=== PATIENT | female | born 1990 | race Caucasian/White ===

== ENCOUNTER 2016-07-28 20:42 | Emergency (ER) | payer BC ==
[2016-07-28 20:59] VITALS: RESP 18; TEMP 98.8
[2016-07-28] MEDS ORDERED: MAG HYDROX/AL HYDROX/SIMETH 30 ML, HYOSCYAMINE ELIXIR 10 ML, CIMETIDINE HCL 300 MG PO STA ×3 (22:04)
--- NOTE | 2016-07-28 22:12 | ED ---
General Adult HPI - General Chief complaint: Chest Pain Stated complaint: chest pressure/pain Time Seen by Provider: 07/28/16 21:04 Source: patient, RN notes reviewed, old records reviewed Mode of arrival: ambulatory Limitations: no limitations - History of Present Illness Initial comments: Chief complaint history of present illness a 25-year-old female here with complaint of a burning sensation that starts on her left anterior chest wall and goes toward the left upper arm. This started 36 hours ago on again off again. Does not get better or worse with twisting turning. No evidence of any injury. No associated nausea vomiting or sweats. - Related Data Home Medications Medication Instructions Recorded Confirmed Eletriptan [Relpax] 40 mg PO DAILY PRN 07/07/14 07/28/16 Propranolol HCl [Inderal Xl] 80 mg PO HS 07/28/16 07/28/16 Zonisamide 200 mg PO HS 07/28/16 07/28/16 Allergies Allergy/AdvReac Type Severity Reaction Status Date / Time No Known Allergies Allergy Verified 07/28/16 21:36 Review of Systems ROS Statement: Those systems with pertinent positive or pertinent negative responses have been documented in the HPI. Review of systems. No headache or visual acuity changes no stiff neck or neck ache. The patient reports she has history of almost daily migraine type headaches. She's only had 3 in the past 4 weeks. She takes propranolol 80 mg at night and is in a semi-20 mg at night. She takes Relpax is needed when she has a bad headache. Otherwise the other medications are nightly. She been on these medications for at least 8 months. Patient otherwise denying any shortness of breath. The burning sensation to her mid sternum to the left upper shoulder cannot be altered by twisting turning deep breathing coughing palpation at setter. Otherwise patient's denying any changes in bowel habits no frequency urgency or dysuria. No neuro deficits. All systems otherwise reviewed are negative. Past medical problems significant for migraines for the past 7 years. Being treated by her neurologist. History of viral meningitis when she is in second grade. Surgeries right ACL repair, ear tubes. Family history no cancers, aneurysms or migraines. Patient denies ALLERGIES, denies smoking, denies alcohol use. 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 ROS Other: All systems not noted in ROS Statement are negative. Past Medical History Additional Past Medical History / Comment(s): migraines, viral mennigitis age 10 History of Any Multi-Drug Resistant Organisms: None Reported Additional Past Surgical History / Comment(s): ACL Past Psychological History: No Psychological Hx Reported Smoking Status: Never smoker Past Alcohol Use History: None Reported Past Drug Use History: None Reported General Exam - General Exam Comments Initial Comments: General: The patient is awake and alert, complaining of a burning sensation from the mid sternum to the left upper shoulder area. Ongoing for 36 hours. Constant, mild , not affected. No associated sweats nausea vomiting. Denies injuries. Eye: Pupils are equal, round and reactive to light, extra-ocular movements are intact ; there is normal conjunctiva bilaterally. No signs of icterus. Ears, nose, mouth and throat: There are moist mucous membranes and no oral lesions. Neck: The neck is supple, there is no tenderness , states she has chronic neck pain has received Botox injections because of both migraines and stiff neck. States she works out every day and sometimes is neck discomfort afterwards. Cardiovascular: There is a regular rate and rhythm. No murmur, rub or gallop is appreciated. No rash noted in the area of discomfort, early shingles discussed. Respiratory: Lungs are clear to auscultation, respirations are non-labored, breath sounds are equal. No wheezes, stridor, rales, or rhonchi. Gastrointestinal: Soft, non-distended, non-tender abdomen without masses or organomegaly noted. There is no rebound or guarding present. No CVA tenderness. Bowel sounds are unremarkable. Back: There is no tenderness to palpation in the midline. There is no obvious deformity. No rashes noted. Musculoskeletal: Normal ROM, no tenderness, There is no pedal edema. There is no calf tenderness or swelling. Sensation intact. Neurological: No neuro deficits noted or complained of. Skin: Skin is warm and dry and no rashes or lesions are noted. No rash, early shingles discussed. Limitations: no limitations Course Vital Signs 07/28/16 20:57 Temperature 98.8 F Pulse Rate 88 Respiratory 18 Rate Blood Pressure 134/88 O2 Sat by Pulse 99 Oximetry EKG Findings - EKG Comments: EKG Findings:: EKG was done and reviewed at 2115 hrs. showing normal sinus rhythm no acute service no ectopy no ischemic changes. Rate 77 MT interval is 124 QRS 92 QT 384 QTc 434. At this time no old EKG to compare to. Dr. Coronel Medical Decision Making - Medical Decision Making Medical decision making; patient's white count 6.4 hemoglobin 12.7 hematocrit 37.8, potassium is 3.9 with a BUN of 12 creatinine 0.7 and GFR greater than 60. Glucose 100. Amylase and lipase within normal limits. CK and MB normal troponin normal at less than 0.012 Chest x-ray was done and reviewed by radiologist his findings are the heart and mediastinum are normal. Lungs are clear. Diaphragm is normal. There are no hilar masses. There are chest leads. Bony thorax is intact. Impression; normal chest. As read by Dr. Ureña The patient's been advised follow-up with family physician. We did discuss a potential side effect of zomisanide, paresthesia. Watch for any change in the texture of the skin as might happen with shingles. Patient advised to follow- up with family doctor or return emergency room as needed - Lab Data Result diagrams: 07/28/16 22:20 07/28/16 22:20 Lab Results 07/28/16 07/28/16 07/28/16 Range/Units 22:20 22:20 22:20 WBC 6.4 (3.8-10.6) k/uL RBC 4.35 (3.80-5.40) m/uL Hgb 12.7 (11.4-16.0) gm/dL Hct 37.8 (34.0-46.0) % MCV 86.9 (80.0-100.0) fL MCH 29.1 (25.0-35.0) pg MCHC 33.5 (31.0-37.0) g/dL RDW 12.7 (11.5-15.5) % Plt Count 252 (150-450) k/uL Neutrophils % 50 % Lymphocytes % 42 % Monocytes % 6 % Eosinophils % 1 % Basophils % 1 % Neutrophils # 3.2 (1.3-7.7) k/uL Lymphocytes # 2.7 (1.0-4.8) k/uL Monocytes # 0.4 (0-1.0) k/uL Eosinophils # 0.1 (0-0.7) k/uL Basophils # 0.0 (0-0.2) k/uL Sodium 139 (137-145) mmol/L Potassium 3.9 (3.5-5.1) mmol/L Chloride 105 (98-107) mmol/L Carbon Dioxide 20 L (22-30) mmol/L Anion Gap 14 mmol/L BUN 12 (7-17) mg/dL Creatinine 0.79 (0.52-1.04) mg/dL Est GFR (MDRD) Af Amer >60 (>60 ml/min/1.73 sqM) Est GFR (MDRD) Non-Af >60 (>60 ml/min/1.73 sqM) Glucose 100 H (74-99) mg/dL Calcium 9.9 (8.4-10.2) mg/dL Total Bilirubin 0.4 (0.2-1.3) mg/dL AST 18 (14-36) U/L ALT 28 (9-52) U/L Alkaline Phosphatase 39 (38-126) U/L Total Creatine Kinase 49 (30-135) U/L CK-MB (CK-2) <0.2 (0.0-2.4) ng/mL CK-MB (CK-2) Rel Index Troponin I <0.012 (0.000-0.034) ng/mL Total Protein 7.2 (6.3-8.2) g/dL Albumin 4.1 (3.5-5.0) g/dL Amylase 70 (30-110) U/L Lipase 170 (23-300) U/L Disposition Clinical Impression: Paresthesia of left upper limb Disposition: HOME SELF-CARE Condition: Stable Instructions: Paresthesia (ED) Additional Instructions: Follow-up with your family physician. Watch for development of any rash. Return emergency room as needed Time of Disposition: 23:48
[2016-07-28 22:44] LABS: Basophils % (A) 1 %; CH 29.7; CHCM 34.4; Eosinophils # (A) 0.1 k/uL (0-0.7); Eosinophils % (A) 1 %; HCT 37.8 % (34.0-46.0); HDW 2.48; HGB 12.7 gm/dL (11.4-16.0); Luc # (Auto) 0.11; Luc % (Auto) 2; Lymphocytes # (A) 2.7 k/uL (1.0-4.8); Lymphocytes % (A) 42 %; MCH 29.1 pg (25.0-35.0); MCHC 33.5 g/dL (31.0-37.0); MCV 86.9 fL (80.0-100.0); Mean Platelet Volume 7.5; Monocytes # (A) 0.4 k/uL (0-1.0); Monocytes % (A) 6 %; Neutrophils # (A) 3.2 k/uL (1.3-7.7); Neutrophils % (A) 50 %; RBC 4.35 m/uL (3.80-5.40); RDW 12.7 % (11.5-15.5); WBC 6.4 k/uL (3.8-10.6); WBC (Perox) 6.54
[2016-07-28 22:57] LABS: ALT 28 U/L (9-52); AST 18 U/L (14-36); Alkaline Phosphatase 39 U/L (38-126); Amylase 70 U/L (30-110); Blood Urea Nitrogen 12 mg/dL (7-17); Calcium 9.9 mg/dL (8.4-10.2); Carbon Dioxide 20 mmol/L (22-30); Chloride 105 mmol/L (98-107); Glucose 100 mg/dL (74-99); Non-African American GFR(MDRD) >60 (>60 ml/min/1.73 sqM); Potassium 3.9 mmol/L (3.5-5.1); Total Bilirubin 0.4 mg/dL (0.2-1.3); Total Protein 7.2 g/dL (6.3-8.2)
[2016-07-28 22:59] LABS: Anion Gap 14 mmol/L; Sodium 139 mmol/L (137-145)
--- NOTE | 2016-07-28 22:59 | XR ---
EXAMINATION TYPE: XR chest 2V DATE OF EXAM: 07/28/2016 10:45 PM COMPARISON: NONE HISTORY: Left-sided chest pain TECHNIQUE: Frontal and lateral views of the chest are obtained. FINDINGS: Heart and mediastinum are normal. Lungs are clear. Diaphragm is normal. There are no hilar masses. There are chest leads. Bony thorax is intact. IMPRESSION: Normal chest
[2016-07-28 23:17] LABS: Creatine Kinase 49 U/L (30-135)
[2016-07-28 23:28] LABS: Creatine Kinase MB <0.2 ng/mL (0.0-2.4); Troponin I <0.012 ng/mL (0.000-0.034)
[2016-07-29] VITALS: BP 104/66; PULSE 84
== END 2016-07-28 23:58 | disposition home or self-care (01) ==
LOC: EC 20:42
DX: R20.8 Other disturbances of skin sensation (principal); Z79.899 Other long term (current) drug therapy; G43.909 Migraine, unspecified, not intractable, without status migrainosus
CPT/HCPCS: 36415; 71020; 80053; 82150; 82550; 82553; 83690; 84484; 85025; 93005; 99285

== ENCOUNTER 2016-09-23 11:47 | Emergency (ER) | payer BC ==
[2016-09-23] MEDS ORDERED: SODIUM CHLORIDE 0.9% 1,000 ML IV STA (12:05)
--- NOTE | 2016-09-23 12:47 | ED ---
Abdominal Pain HPI - General Chief Complaint: Abdominal Pain Stated Complaint: LOWER ABDOMINAL PAIN Time Seen by Provider: 09/23/16 12:05 Source: patient, RN notes reviewed Mode of arrival: ambulatory Limitations: no limitations - History of Present Illness Initial Comments: 25-year-old female presents emergency Department with chief complaint of left lower quadrant abdominal pain. Patient states started over the last 1-2 days. She states is worse this morning. She states that it's a burning sharp type of pain. She's had no prior abdominal surgeries denies any chance she states that control. Denies any vaginal bleeding vaginal discharge. Denies any dysuria, hematuria. Denies any trauma or injury. She states is not worse with movement. She does radiate to her back at this time. Patient's had some nausea no vomiting no diarrhea no constipation. - Related Data Home Medications Medication Instructions Recorded Confirmed Propranolol HCl [Inderal Xl] 80 mg PO HS 07/28/16 09/23/16 Zonisamide 200 mg PO HS 07/28/16 09/23/16 Amitriptyline HCl [Elavil] 25 mg PO HS 09/23/16 09/23/16 Levonorgestrel-Ethin Estradiol 1 tab PO DAILY 09/23/16 09/23/16 [Jolessa 0.15 mg-0.03 mg Tablet] Allergies Allergy/AdvReac Type Severity Reaction Status Date / Time No Known Allergies Allergy Verified 09/23/16 12:38 Review of Systems ROS Statement: Those systems with pertinent positive or pertinent negative responses have been documented in the HPI. ROS Other: All systems not noted in ROS Statement are negative. Past Medical History Additional Past Medical History / Comment(s): migraines, viral mennigitis age 10 , ulcerative colitis History of Any Multi-Drug Resistant Organisms: None Reported Additional Past Surgical History / Comment(s): ACL Past Psychological History: No Psychological Hx Reported Smoking Status: Never smoker Past Alcohol Use History: None Reported Past Drug Use History: None Reported General Exam Limitations: no limitations General appearance: alert, in no apparent distress Head exam: Present: atraumatic, normocephalic, normal inspection Respiratory exam: Present: normal lung sounds bilaterally. Absent: respiratory distress, wheezes, rales, rhonchi, stridor Cardiovascular Exam: Present: regular rate, normal rhythm, normal heart sounds. Absent: systolic murmur, diastolic murmur, rubs, gallop, clicks GI/Abdominal exam: Present: soft, tenderness (Left lower quadrant tenderness [id number]), normal bowel sounds. Absent: distended, guarding, rebound, rigid Back exam: Absent: CVA tenderness (R), CVA tenderness (L) Neurological exam: Present: alert, oriented X3, CN II-XII intact Skin exam: Present: warm, dry, intact, normal color. Absent: rash Course Vital Signs 09/23/16 11:54 Temperature 97.6 F Pulse Rate 73 Respiratory 20 Rate Blood Pressure 115/76 O2 Sat by Pulse 100 Oximetry Medical Decision Making - Medical Decision Making 25-year-old female presented for left groin pain. Patient's ultrasound within normal limits., Lab work within normal limits. This may be a muscle skeletal groin strain or possible lymph node Palpable at This Time. Patient Is Saw OB/ COMMUNICATIONS ASSOCIATE 3 Days Ago and Which States They Told Having Was Normal. Patient Will Be Discharged at This Time Return Parameters Were Discussed. - Lab Data Result diagrams: 09/23/16 12:45 09/23/16 12:45 Lab Results 09/23/16 09/23/16 09/23/16 Range/Units 12:45 12:45 12:45 WBC 6.9 (3.8-10.6) k/uL RBC 4.62 (3.80-5.40) m/uL Hgb 13.8 (11.4-16.0) gm/dL Hct 41.4 (34.0-46.0) % MCV 89.6 (80.0-100.0) fL MCH 29.8 (25.0-35.0) pg MCHC 33.3 (31.0-37.0) g/dL RDW 12.7 (11.5-15.5) % Plt Count 299 (150-450) k/uL Neutrophils % 68 % Lymphocytes % 24 % Monocytes % 4 % Eosinophils % 0 % Basophils % 1 % Neutrophils # 4.7 (1.3-7.7) k/uL Lymphocytes # 1.7 (1.0-4.8) k/uL Monocytes # 0.3 (0-1.0) k/uL Eosinophils # 0.0 (0-0.7) k/uL Basophils # 0.0 (0-0.2) k/uL Sodium 140 (137-145) mmol/L Potassium 4.1 (3.5-5.1) mmol/L Chloride 106 (98-107) mmol/L Carbon Dioxide 23 (22-30) mmol/L Anion Gap 11 mmol/L BUN 12 (7-17) mg/dL Creatinine 0.87 (0.52-1.04) mg/dL Est GFR (MDRD) Af Amer >60 (>60 ml/min/1.73 sqM) Est GFR (MDRD) Non-Af >60 (>60 ml/min/1.73 sqM) Glucose 98 (74-99) mg/dL Calcium 9.3 (8.4-10.2) mg/dL Total Bilirubin 0.6 (0.2-1.3) mg/dL AST 22 (14-36) U/L ALT 21 (9-52) U/L Alkaline Phosphatase 38 (38-126) U/L Total Protein 7.6 (6.3-8.2) g/dL Albumin 4.4 (3.5-5.0) g/dL Amylase 66 (30-110) U/L Lipase 175 (23-300) U/L Urine Color Yellow Urine Appearance Clear (Clear) Urine pH 6.5 (5.0-8.0) Ur Specific [place] 1.011 (1.001-1.035) Urine Protein Negative (Negative) Urine Glucose (UA) Negative (Negative) Urine Ketones Negative (Negative) Urine Blood Negative (Negative) Urine Nitrite Negative (Negative) Urine Bilirubin Negative (Negative) Urine Urobilinogen <2.0 (<2.0) mg/dL Ur Leukocyte Esterase Trace H (Negative) Urine WBC 1 (0-5) /hpf Ur Squamous Epith Cells 1 (0-4) /hpf Urine Bacteria Rare H (None) /hpf Urine HCG, Qual (Not Detectd) 09/23/16 Range/Units 12:45 WBC (3.8-10.6) k/uL RBC (3.80-5.40) m/uL Hgb (11.4-16.0) gm/dL Hct (34.0-46.0) % MCV (80.0-100.0) fL MCH (25.0-35.0) pg MCHC (31.0-37.0) g/dL RDW (11.5-15.5) % Plt Count (150-450) k/uL Neutrophils % % Lymphocytes % % Monocytes % % Eosinophils % % Basophils % % Neutrophils # (1.3-7.7) k/uL Lymphocytes # (1.0-4.8) k/uL Monocytes # (0-1.0) k/uL Eosinophils # (0-0.7) k/uL Basophils # (0-0.2) k/uL Sodium (137-145) mmol/L Potassium (3.5-5.1) mmol/L Chloride (98-107) mmol/L Carbon Dioxide (22-30) mmol/L Anion Gap mmol/L BUN (7-17) mg/dL Creatinine (0.52-1.04) mg/dL Est GFR (MDRD) Af Amer (>60 ml/min/1.73 sqM) Est GFR (MDRD) Non-Af (>60 ml/min/1.73 sqM) Glucose (74-99) mg/dL Calcium (8.4-10.2) mg/dL Total Bilirubin (0.2-1.3) mg/dL AST (14-36) U/L ALT (9-52) U/L Alkaline Phosphatase (38-126) U/L Total Protein (6.3-8.2) g/dL Albumin (3.5-5.0) g/dL Amylase (30-110) U/L Lipase (23-300) U/L Urine Color Urine Appearance (Clear) Urine pH (5.0-8.0) Ur Specific [place] (1.001-1.035) Urine Protein (Negative) Urine Glucose (UA) (Negative) Urine Ketones (Negative) Urine Blood (Negative) Urine Nitrite (Negative) Urine Bilirubin (Negative) Urine Urobilinogen (<2.0) mg/dL Ur Leukocyte Esterase (Negative) Urine WBC (0-5) /hpf Ur Squamous Epith Cells (0-4) /hpf Urine Bacteria (None) /hpf Urine HCG, Qual Not Detected (Not Detectd) Disposition Clinical Impression: Left groin pain Disposition: HOME SELF-CARE Condition: Stable Instructions: Groin Pain (ED) Additional Instructions: Please return to the Emergency Department if symptoms worsen or any other concerns. Time of Disposition: 14:02
[2016-09-23 13:06] LABS: Appearance,Urine Clear (Clear); Bacteria,Urine Rare /hpf; Basophils % (A) 1 %; Bilirubin,Urine Negative (Negative); CH 29.9; CHCM 33.5; Eosinophils % (A) 0 %; Glucose,Urine (UA) Negative (Negative); HCT 41.4 % (34.0-46.0); HDW 2.38; HGB 13.8 gm/dL (11.4-16.0); Ketones,Urine Negative (Negative); Leukocyte Esterase,Urine Trace (Negative); Luc # (Auto) 0.19; Luc % (Auto) 3; Lymphocytes # (A) 1.7 k/uL (1.0-4.8); Lymphocytes % (A) 24 %; MCH 29.8 pg (25.0-35.0); MCHC 33.3 g/dL (31.0-37.0); MCV 89.6 fL (80.0-100.0); Mean Platelet Volume 6.8; Monocytes # (A) 0.3 k/uL (0-1.0); Monocytes % (A) 4 %; Neutrophils # (A) 4.7 k/uL (1.3-7.7); Neutrophils % (A) 68 %; Nitrite,Urine Negative (Negative); PH, Urine 6.5 (5.0-8.0); Particle Count 2052; Protein,Urine Negative (Negative); RBC 4.62 m/uL (3.80-5.40); RDW 12.7 % (11.5-15.5); Specific Gravity,Urine 1.011 (1.001-1.035); Squamous Epithelial Cell,Urine 1 /hpf (0-4); UA Billing (MACRO vs. MICRO) MICRO; Urobilinogen,Urine <2.0 mg/dL (<2.0); WBC 6.9 k/uL (3.8-10.6); WBC (Perox) 6.94; WBC,Urine 1 /hpf (0-5)
[2016-09-23 13:10] LABS: ALT 21 U/L (9-52); AST 22 U/L (14-36); Alkaline Phosphatase 38 U/L (38-126); Amylase 66 U/L (30-110); Anion Gap 11 mmol/L; Blood Urea Nitrogen 12 mg/dL (7-17); Calcium 9.3 mg/dL (8.4-10.2); Carbon Dioxide 23 mmol/L (22-30); Chloride 106 mmol/L (98-107); Glucose 98 mg/dL (74-99); Non-African American GFR(MDRD) >60 (>60 ml/min/1.73 sqM); Potassium 4.1 mmol/L (3.5-5.1); Sodium 140 mmol/L (137-145); Total Bilirubin 0.6 mg/dL (0.2-1.3); Total Protein 7.6 g/dL (6.3-8.2)
--- NOTE | 2016-09-23 13:53 | US ---
EXAMINATION TYPE: US transvaginal DATE OF EXAM: 09/23/2016 1:33 PM COMPARISON: No previous CLINICAL HISTORY: Pain. Left pelvic pain x 1 day, patient on control, 0 TECHNIQUE: Transvaginal (TV) Date of LMP: 2 months ago EXAM MEASUREMENTS: Uterus: 7.5 x 3.0 x 4.0 cm Endometrial Stripe: 0.5 cm Right Ovary: 3.0 x 1.9 x 1.5 cm Left Ovary: 2.7 x 1.9 x 1.5 cm 1. Uterus: anteverted, wnl 2. Endometrium: appears wnl 3. Right Ovary: wnl 4. Left Ovary: wnl Spectral, color and waveform doppler imaging shows good arterial flow within the ovaries; unable to obtain venous flow with the ovaries. 5. Bilateral Adnexa: wnl 6. Posterior cul-de-sac: small amount of free fluid seen IMPRESSION: Arterial waveforms are present within both ovaries. Venous waveforms were not obtained. M inimal free fluid within the pelvis.
--- NOTE | 2016-09-23 13:58 | XR ---
EXAMINATION TYPE: XR KUB DATE OF EXAM: 09/23/2016 1:54 PM CLINICAL HISTORY: Lower stomach and back pain for one week. TECHNIQUE: 2 upright KUB images of the abdomen are obtained. COMPARISON: Abdominal x-ray March 29, 2009. FINDINGS: Scattered gas is seen in non-distended small bowel loops. Gas and fecal material is seen in non-distended colon. There is no visceromegaly, pneumoperitoneum, or abnormal calcification appr eciated. The lung bases are clear and the osseous structures are intact. IMPRESSION: Overall nonobstructive bowel gas pattern. No definite nephrolithiasis.
[2016-09-23 14:11] VITALS: BP 120/87; PULSE 67; RESP 18; TEMP 98.4
== END 2016-09-23 14:10 | disposition home or self-care (01) ==
LOC: EC 11:47
DX: R10.32 Left lower quadrant pain (principal); R11.0 Nausea; Z79.899 Other long term (current) drug therapy
CPT/HCPCS: 36415; 74000; 76830; 80053; 81001; 81025; 82150; 83690; 85025; 93976; 96360; 99284

== ENCOUNTER 2017-07-02 11:56 | Emergency (ER) | payer BC ==
[2017-07-02] MEDS ORDERED: KETOROLAC 60 MG/2 ML VIAL IVP STA (12:36)
[2017-07-02 12:39] LABS: Appearance,Urine Cloudy (Clear); Bacteria,Urine Few /hpf; Bilirubin,Urine Negative (Negative); Blood,Urine Negative (Negative); Color,Urine Light Yellow; Glucose,Urine (UA) Negative (Negative); Ketones,Urine Negative (Negative); Leukocyte Esterase,Urine Moderate (Negative); Mucus,Urine Rare /hpf; Nitrite,Urine Negative (Negative); PH, Urine 6.5 (5.0-8.0); Protein,Urine Negative (Negative); RBC,Urine 1 /hpf (0-5); Specific Gravity,Urine 1.009 (1.001-1.035); Squamous Epithelial Cell,Urine 1 /hpf (0-4); Urobilinogen,Urine <2.0 mg/dL (<2.0); WBC,Urine 4 /hpf (0-5)
--- NOTE | 2017-07-02 12:41 | ED ---
General Adult HPI - General Chief complaint: Abdominal Pain Stated complaint: Kidney stones Time Seen by Provider: 07/02/17 12:00 Source: patient, RN notes reviewed Mode of arrival: ambulatory Limitations: no limitations - History of Present Illness Initial comments: This is a 26-year-old female who presents to the emergency department complaining of right sided pain since . Patient went to the right lower quadrant and inguinal area. Patient states it radiates to her back. Patient states now is on the left side but not as significant on the left as the right. Patient has also noticed some soreness in both of her armpits her anterior wrist and behind both of her knees. Patient thought it was swelling however does not look swollen to me. Patient denies any fever or chills. Patient denies any chest pain palpitations difficulty breathing or shortness of breath. Patient denies any cough. Patient denies headache patient denies numbness weakness. Patient denies any dysuria hematuria urinary frequency. Patient denies any injury or trauma. Patient denies any vomiting or diarrhea. - Related Data Home Medications Medication Instructions Recorded Confirmed Propranolol HCl [Inderal Xl] 80 mg PO HS 07/28/16 07/02/17 Zonisamide 200 mg PO HS 07/28/16 07/02/17 Eletriptan [Relpax] 40 mg PO DAILY PRN 07/02/17 07/02/17 Allergies Allergy/AdvReac Type Severity Reaction Status Date / Time No Known Allergies Allergy Verified 07/02/17 12:46 Review of Systems ROS Statement: Those systems with pertinent positive or pertinent negative responses have been documented in the HPI. ROS Other: All systems not noted in ROS Statement are negative. Past Medical History Additional Past Medical History / Comment(s): migraines, viral mennigitis age 10 , ulcerative colitis History of Any Multi-Drug Resistant Organisms: None Reported Past Surgical History: Orthopedic Surgery Additional Past Surgical History / Comment(s): Right ACL repair Past Psychological History: No Psychological Hx Reported Smoking Status: Never smoker Past Alcohol Use History: None Reported Past Drug Use History: None Reported General Exam - General Exam Comments Initial Comments: GENERAL: Patient is well-developed and well-nourished. Patient is nontoxic and well- hydrated and is in mild distress. ENT: Neck is soft and supple. No significant lymphadenopathy is noted. Oropharynx is clear. Moist mucous membranes. Neck has full range of motion without eliciting any pain. EYES: The sclera were anicteric and conjunctiva were pink and moist. Extraocular movements were intact and pupils were equal round and reactive to light. Eyelids were unremarkable. PULMONARY: Unlabored respirations. Good breath sounds bilaterally. No audible rales rhonchi or wheezing was noted. CARDIOVASCULAR: There is a regular rate and rhythm without any murmurs gallops or rubs. ABDOMEN: Soft and nontender with normal bowel sounds. No palpable organomegaly was noted. There is no palpable pulsatile mass. SKIN: Skin is clear with no lesions or rashes and otherwise unremarkable. NEUROLOGIC: Patient is alert and oriented x3. Cranial nerves II through XII are grossly intact. Motor and sensory are also intact. Normal speech, volume and content. Symmetrical smile. I do not appreciate any swelling in the arm pit wrist or popliteal area I do not patient any lymphadenopathy in the armpits or groin area. MUSCULOSKELETAL: Normal extremities with adequate strength and full range of motion. LYMPHATICS: No significant lymphadenopathy is noted PSYCHIATRIC: Normal psychiatric evaluation. Limitations: no limitations Course Vital Signs 07/02/17 12:01 Temperature 98.0 F Pulse Rate 80 Respiratory 20 Rate Blood Pressure 117/67 O2 Sat by Pulse 99 Oximetry Medical Decision Making - Medical Decision Making CT of the abdomen and pelvis showed no acute abnormalities. Patient was feeling better than she had last evening and was comfortable going home and following up. - Lab Data Result diagrams: 07/02/17 12:52 07/02/17 12:52 Lab Results 07/02/17 07/02/17 07/02/17 Range/Units 12:18 12:18 12:52 WBC (3.8-10.6) k/uL RBC (3.80-5.40) m/uL Hgb (11.4-16.0) gm/dL Hct (34.0-46.0) % MCV (80.0-100.0) fL MCH (25.0-35.0) pg MCHC (31.0-37.0) g/dL RDW (11.5-15.5) % Plt Count (150-450) k/uL Neutrophils % % Lymphocytes % % Monocytes % % Eosinophils % % Basophils % % Neutrophils # (1.3-7.7) k/uL Lymphocytes # (1.0-4.8) k/uL Monocytes # (0-1.0) k/uL Eosinophils # (0-0.7) k/uL Basophils # (0-0.2) k/uL ESR (0-20) mm/hr Sodium 140 (137-145) mmol/L Potassium 4.3 (3.5-5.1) mmol/L Chloride 107 (98-107) mmol/L Carbon Dioxide 23 (22-30) mmol/L Anion Gap 10 mmol/L BUN 15 (7-17) mg/dL Creatinine 0.90 (0.52-1.04) mg/dL Est GFR (MDRD) Af Amer >60 (>60 ml/min/1.73 sqM) Est GFR (MDRD) Non-Af >60 (>60 ml/min/1.73 sqM) Glucose 109 H (74-99) mg/dL Calcium 9.4 (8.4-10.2) mg/dL Total Bilirubin 0.6 (0.2-1.3) mg/dL AST 23 (14-36) U/L ALT 24 (9-52) U/L Alkaline Phosphatase 29 L (38-126) U/L C-Reactive Protein 6.9 (<10.0) mg/L Total Protein 7.3 (6.3-8.2) g/dL Albumin 4.4 (3.5-5.0) g/dL Amylase 84 (30-110) U/L Lipase 222 (23-300) U/L Urine Color Light Yellow Urine Appearance Cloudy H (Clear) Urine pH 6.5 (5.0-8.0) Ur Specific [place] 1.009 (1.001-1.035) Urine Protein Negative (Negative) Urine Glucose (UA) Negative (Negative) Urine Ketones Negative (Negative) Urine Blood Negative (Negative) Urine Nitrite Negative (Negative) Urine Bilirubin Negative (Negative) Urine Urobilinogen <2.0 (<2.0) mg/dL Ur Leukocyte Esterase Moderate H (Negative) Urine RBC 1 (0-5) /hpf Urine WBC 4 (0-5) /hpf Ur Squamous Epith Cells 1 (0-4) /hpf Urine Bacteria Few H (None) /hpf Urine Mucus Rare H (None) /hpf Urine Yeast (Budding) (None) /hpf Urine HCG, Qual Not Detected (Not Detectd) 07/02/17 Range/Units 12:52 WBC 6.8 (3.8-10.6) k/uL RBC 4.44 (3.80-5.40) m/uL Hgb 13.1 (11.4-16.0) gm/dL Hct 39.9 (34.0-46.0) % MCV 89.7 (80.0-100.0) fL MCH 29.6 (25.0-35.0) pg MCHC 32.9 (31.0-37.0) g/dL RDW 12.2 (11.5-15.5) % Plt Count 258 (150-450) k/uL Neutrophils % 71 % Lymphocytes % 23 % Monocytes % 3 % Eosinophils % 1 % Basophils % 0 % Neutrophils # 4.8 (1.3-7.7) k/uL Lymphocytes # 1.6 (1.0-4.8) k/uL Monocytes # 0.2 (0-1.0) k/uL Eosinophils # 0.1 (0-0.7) k/uL Basophils # 0.0 (0-0.2) k/uL ESR 2 (0-20) mm/hr Sodium (137-145) mmol/L Potassium (3.5-5.1) mmol/L Chloride (98-107) mmol/L Carbon Dioxide (22-30) mmol/L Anion Gap mmol/L BUN (7-17) mg/dL Creatinine (0.52-1.04) mg/dL Est GFR (MDRD) Af Amer (>60 ml/min/1.73 sqM) Est GFR (MDRD) Non-Af (>60 ml/min/1.73 sqM) Glucose (74-99) mg/dL Calcium (8.4-10.2) mg/dL Total Bilirubin (0.2-1.3) mg/dL AST (14-36) U/L ALT (9-52) U/L Alkaline Phosphatase (38-126) U/L C-Reactive Protein (<10.0) mg/L Total Protein (6.3-8.2) g/dL Albumin (3.5-5.0) g/dL Amylase (30-110) U/L Lipase (23-300) U/L Urine Color Urine Appearance (Clear) Urine pH (5.0-8.0) Ur Specific [place] (1.001-1.035) Urine Protein (Negative) Urine Glucose (UA) (Negative) Urine Ketones (Negative) Urine Blood (Negative) Urine Nitrite (Negative) Urine Bilirubin (Negative) Urine Urobilinogen (<2.0) mg/dL Ur Leukocyte Esterase (Negative) Urine RBC (0-5) /hpf Urine WBC (0-5) /hpf Ur Squamous Epith Cells (0-4) /hpf Urine Bacteria (None) /hpf Urine Mucus (None) /hpf Urine Yeast (Budding) (None) /hpf Urine HCG, Qual (Not Detectd) Disposition Clinical Impression: Abdominal pain Disposition: HOME SELF-CARE Instructions: Abdominal Pain (ED) Referrals: Garrett Diehl Jr, DO [Primary Care Provider] - 1-2 days Time of Disposition: 15:41
[2017-07-02 13:02] LABS: Basophils % (A) 0 %; Eosinophils # (A) 0.1 k/uL (0-0.7); Eosinophils % (A) 1 %; HCT 39.9 % (34.0-46.0); HGB 13.1 gm/dL (11.4-16.0); Lymphocytes # (A) 1.6 k/uL (1.0-4.8); Lymphocytes % (A) 23 %; MCH 29.6 pg (25.0-35.0); MCHC 32.9 g/dL (31.0-37.0); MCV 89.7 fL (80.0-100.0); Mean Platelet Volume 7.1; Monocytes # (A) 0.2 k/uL (0-1.0); Monocytes % (A) 3 %; Neutrophils # (A) 4.8 k/uL (1.3-7.7); Neutrophils % (A) 71 %; Platelet Count 258 k/uL (150-450); RBC 4.44 m/uL (3.80-5.40); RDW 12.2 % (11.5-15.5); WBC 6.8 k/uL (3.8-10.6)
[2017-07-02 13:14] LABS: ALT 24 U/L (9-52); AST 23 U/L (14-36); Albumin 4.4 g/dL (3.5-5.0); Alkaline Phosphatase 29 U/L (38-126); Amylase 84 U/L (30-110); Anion Gap 10 mmol/L; Blood Urea Nitrogen 15 mg/dL (7-17); C Reactive Protein 6.9 mg/L (<10.0); Calcium 9.4 mg/dL (8.4-10.2); Carbon Dioxide 23 mmol/L (22-30); Chloride 107 mmol/L (98-107); Glucose 109 mg/dL (74-99); Lipase 222 U/L (23-300); Potassium 4.3 mmol/L (3.5-5.1); Sodium 140 mmol/L (137-145); Total Bilirubin 0.6 mg/dL (0.2-1.3); Total Protein 7.3 g/dL (6.3-8.2)
[2017-07-02] MEDS ORDERED: RX INFO: IV CONTRAST WAS GIVEN 1 EACH MISC MISCELLANE PRN (13:59)
[2017-07-02 14:03] LABS: Erythrocyte Sedimentation Rate 2 mm/hr (0-20)
--- NOTE | 2017-07-02 14:43 | CT ---
EXAMINATION TYPE: CT abdomen pelvis wo con DATE OF EXAM: 07/02/2017 COMPARISON: NONE HISTORY: Rt Flank pain CT DLP: 275.3 mGycm Automated exposure control for dose reduction was used. TECHNIQUE: Helical acquisition of images was performed from the lung bases through the pelvis. FINDINGS: Lung bases are clear. There is no pleural effusion. Liver spleen pancreas gallbladder appear normal. Bile ducts are not dilated. There is no adrenal mass. Kidneys have normal size and contour. There is no hydronephrosis. There is no retroperitoneal adenopathy. There is no adrenal mass. I see no intestinal wall thickening. There are no dilated loops. There is some retained fecal materia l in the rectum. There is no sign of appendicitis. I see no bony destructive process. IMPRESSION: MINIMAL CONSTIPATION. NO SIGN OF APPENDICITIS. NO EVIDENCE OF RENAL STONE OR OBSTRUCTION.
[2017-07-02 15:44] VITALS: BP 132/80; PULSE 76; RESP 16; TEMP 98
== END 2017-07-02 15:47 | disposition home or self-care (01) ==
LOC: EC 11:56
DX: R10.31 Right lower quadrant pain (principal); R10.32 Left lower quadrant pain; M54.9 Dorsalgia, unspecified; M79.621 Pain in right upper arm; M79.622 Pain in left upper arm; M25.531 Pain in right wrist; M25.532 Pain in left wrist; M25.562 Pain in left knee; M25.561 Pain in right knee; Z79.899 Other long term (current) drug therapy; Z98.890 Other specified postprocedural states
CPT/HCPCS: 36415; 80053; 85652; 82150; 83690; 85025; 86140; 81001; 81025; 74176; 99284; 96374; J1885

== ENCOUNTER 2017-07-12 15:21 | Emergency (ER) | payer BC ==
[2017-07-12 16:18] VITALS: RESP 18
[2017-07-12] MEDS ORDERED: HYDROmorphone 1 MG/ML 1 ML SYRINGE IVP STA (18:18)
[2017-07-12] MEDS ORDERED: ONDANSETRON 4 MG/2 ML VIAL IVP STA (18:18)
[2017-07-12] MEDS ORDERED: SODIUM CHLORIDE 0.9% 1,000 ML IV STA ×2 (18:18)
[2017-07-12 18:48] LABS: Basophils % (A) 0 %; Eosinophils # (A) 0.1 k/uL (0-0.7); Eosinophils % (A) 1 %; HCT 39.3 % (34.0-46.0); HGB 13.1 gm/dL (11.4-16.0); Lymphocytes # (A) 2.3 k/uL (1.0-4.8); Lymphocytes % (A) 29 %; MCH 29.7 pg (25.0-35.0); MCHC 33.4 g/dL (31.0-37.0); MCV 89.1 fL (80.0-100.0); Mean Platelet Volume 6.7; Monocytes # (A) 0.3 k/uL (0-1.0); Monocytes % (A) 4 %; Neutrophils # (A) 5.2 k/uL (1.3-7.7); Neutrophils % (A) 65 %; Platelet Count 314 k/uL (150-450); RBC 4.41 m/uL (3.80-5.40); RDW 12.3 % (11.5-15.5)
[2017-07-12 19:03] LABS: ALT 20 U/L (9-52); AST 19 U/L (14-36); Albumin 4.3 g/dL (3.5-5.0); Alkaline Phosphatase 34 U/L (38-126); Amylase 78 U/L (30-110); Anion Gap 8 mmol/L; Blood Urea Nitrogen 11 mg/dL (7-17); Calcium 9.6 mg/dL (8.4-10.2); Carbon Dioxide 24 mmol/L (22-30); Chloride 107 mmol/L (98-107); Glucose 89 mg/dL (74-99); Lipase 237 U/L (23-300); Potassium 4.5 mmol/L (3.5-5.1); Sodium 139 mmol/L (137-145); Total Bilirubin 0.3 mg/dL (0.2-1.3); Total Protein 7.2 g/dL (6.3-8.2)
--- NOTE | 2017-07-12 19:34 | US ---
EXAMINATION TYPE: US gallbladder DATE OF EXAM: 07/12/2017 COMPARISON: NONE CLINICAL HISTORY: Pain. RUQ pain EXAM MEASUREMENTS: Liver Length: 17.3 cm Gallbladder Wall: 0.21 cm CBD: 0.44 cm Right Kidney: 11.6 x 4.2 x 3.5 cm Pancreas: wnl Liver: Hyperechoic area seen right lobe measuring 1.1 x 1.1 x 1.0 cm Gallbladder: No stones seen Evidence for sonographic Perez's sign: No CBD: wnl Right Kidney: No hydronephrosis or masses seen Incidental Hepatic Finding: Poorly marginated rounded bulging is hyperechoic focus is seen in the rig ht hepatic lobe posteriorly, measuring 1.1 x 1.1 x 1.0 cm. This focus is too small and too posterior to be further characterized with sonography; it likely represents incidental cavernous hemangioma wh ich can be proven with MRI if clinically indicated. IMPRESSION: NO ACUTE PROCESS; NO CORRELATE FOR THE PATIENT'S RIGHT UPPER QUADRANT PAIN.
--- NOTE | 2017-07-12 20:03 | ED ---
Abdominal Pain HPI - General Chief Complaint: Abdominal Pain Stated Complaint: R upper quad pain Time Seen by Provider: 07/12/17 17:41 Source: patient, RN notes reviewed, old records reviewed Mode of arrival: ambulatory Limitations: no limitations - History of Present Illness Initial Comments: this is a 26-year-old female presents emergency Department 3 weeks of right upper quadrant abdominal pain. Patient ports she is evaluated earlier this week , to rule out kidney stones. She had a CAT scan at that time which was negative for any acute process. Patient's labwork was reviewed and negative for any and normalities a that time as well. Patient states that she reports that the pain is now localized to the right upper quadrant. Seems to be worse after eating. She denies any fever or chills. He reports feels nauseated. - Related Data Home Medications Medication Instructions Recorded Confirmed Propranolol HCl [Inderal Xl] 80 mg PO HS 07/28/16 07/12/17 Zonisamide 200 mg PO HS 07/28/16 07/12/17 Eletriptan [Relpax] 40 mg PO HS PRN 07/02/17 07/12/17 Previous Rx's Medication Instructions Recorded Acetaminophen-Codeine 300-30mg 1 tab PO Q6H PRN #12 tablet 07/12/17 [Tylenol #3] Ondansetron Odt [Zofran Odt] 4 mg PO Q8HR PRN #15 tab 07/12/17 Pantoprazole [Protonix] 40 mg PO DAILY #30 tablet. 07/12/17 Allergies Allergy/AdvReac Type Severity Reaction Status Date / Time No Known Allergies Allergy Verified 07/12/17 19:40 Review of Systems ROS Statement: Those systems with pertinent positive or pertinent negative responses have been documented in the HPI. ROS Other: All systems not noted in ROS Statement are negative. Past Medical History Additional Past Medical History / Comment(s): migraines, viral mennigitis age 10 , ulcerative colitis History of Any Multi-Drug Resistant Organisms: None Reported Past Surgical History: Orthopedic Surgery Additional Past Surgical History / Comment(s): Right ACL repair Past Psychological History: No Psychological Hx Reported Smoking Status: Never smoker Past Alcohol Use History: None Reported Past Drug Use History: None Reported General Exam - General Exam Comments Initial Comments: physical 26-year-old female. No distress. Limitations: no limitations General appearance: alert, in no apparent distress Head exam: Present: atraumatic, normocephalic, normal inspection Eye exam: Present: normal appearance, PERRL, EOMI. Absent: scleral icterus, conjunctival injection, periorbital swelling ENT exam: Present: normal exam, mucous membranes moist Neck exam: Present: normal inspection. Absent: tenderness, meningismus, lymphadenopathy Respiratory exam: Present: normal lung sounds bilaterally. Absent: respiratory distress, wheezes, rales, rhonchi, stridor Cardiovascular Exam: Present: regular rate, normal rhythm, normal heart sounds. Absent: systolic murmur, diastolic murmur, rubs, gallop, clicks GI/Abdominal exam: Present: soft, tenderness (right upper quadrant tenderness.) , normal bowel sounds. Absent: distended, guarding, rebound, rigid Extremities exam: Present: normal inspection, full ROM, normal capillary refill. Absent: tenderness, pedal edema, joint swelling, calf tenderness Back exam: Present: normal inspection Neurological exam: Present: alert, oriented X3, CN II-XII intact Course Vital Signs 07/12/17 16:16 Temperature 98.6 F Pulse Rate 86 Respiratory 18 Rate Blood Pressure 138/83 O2 Sat by Pulse 98 Oximetry Medical Decision Making - Medical Decision Making patient is a 26-year-old female presents today with chief complaint of right upper quadrant abdominal pain for approximately 3 weeks. She reports that over the past few days it seems to localize and only the right upper quadrant. She' s valuated partially one week ago with diffuse right-sided pain. Had a CAT scan at that he was negative for any acute process. Patient is concerned of her gallbladder. At this time patient given IV fluids pain medication and nausea medicine. Labwork was obtained. Patient's lab work was negative for any acute process. Right upper quadrant sound was ordered and shows no significant abnormal values at this time. No evidence of cholecystitis, no gallbladder sludge, and bile ducts are normal. Patient is informed of these results. Discussed the possibility of prophylactic gallbladder, and that she may need a HIDA scan. Discussed that she will be discharged with nausea medicine and can write her for the first pain medicine. Discussed monitoring her diet and avoiding any fatty foods. Patient agrees to treatment plan will comply. Return parameters were discussed. - Lab Data Result diagrams: 07/12/17 18:38 07/12/17 18:38 Lab Results 07/12/17 07/12/17 Range/Units 18:38 18:38 WBC 8.0 (3.8-10.6) k/uL RBC 4.41 (3.80-5.40) m/uL Hgb 13.1 (11.4-16.0) gm/dL Hct 39.3 (34.0-46.0) % MCV 89.1 (80.0-100.0) fL MCH 29.7 (25.0-35.0) pg MCHC 33.4 (31.0-37.0) g/dL RDW 12.3 (11.5-15.5) % Plt Count 314 (150-450) k/uL Neutrophils % 65 % Lymphocytes % 29 % Monocytes % 4 % Eosinophils % 1 % Basophils % 0 % Neutrophils # 5.2 (1.3-7.7) k/uL Lymphocytes # 2.3 (1.0-4.8) k/uL Monocytes # 0.3 (0-1.0) k/uL Eosinophils # 0.1 (0-0.7) k/uL Basophils # 0.0 (0-0.2) k/uL Sodium 139 (137-145) mmol/L Potassium 4.5 (3.5-5.1) mmol/L Chloride 107 (98-107) mmol/L Carbon Dioxide 24 (22-30) mmol/L Anion Gap 8 mmol/L BUN 11 (7-17) mg/dL Creatinine 0.77 (0.52-1.04) mg/dL Est GFR (MDRD) Af Amer >60 (>60 ml/min/1.73 sqM) Est GFR (MDRD) Non-Af >60 (>60 ml/min/1.73 sqM) Glucose 89 (74-99) mg/dL Calcium 9.6 (8.4-10.2) mg/dL Total Bilirubin 0.3 (0.2-1.3) mg/dL AST 19 (14-36) U/L ALT 20 (9-52) U/L Alkaline Phosphatase 34 L (38-126) U/L Total Protein 7.2 (6.3-8.2) g/dL Albumin 4.3 (3.5-5.0) g/dL Amylase 78 (30-110) U/L Lipase 237 (23-300) U/L - Radiology Data Radiology results: report reviewed ultrasound is negative for any acute process. No evidence of acute cholecystitis. Disposition Clinical Impression: RUQ pain Disposition: HOME SELF-CARE Condition: Good Instructions: Biliary Colic (ED) Additional Instructions: Pt is advised to avoid fatty or greasy foods. [place] and liquid diet for the next 24-48 hours. Follow-up with primary care provider and [employer] regards to further testing including HIDA scan or other studies. Patient should return to emergency department if any alarming signs or symptoms occur. Prescriptions: Acetaminophen-Codeine 300-30mg [Tylenol #3] 1 tab PO Q6H PRN #12 tablet PRN Reason: Pain Ondansetron Odt [Zofran Odt] 4 mg PO Q8HR PRN #15 tab PRN Reason: Nausea Pantoprazole [Protonix] 40 mg PO DAILY #30 tablet. Referrals: Garrett Diehl Jr, [Primary Care Provider] - 1-2 days Amos Dewey MD [STAFF PHYSICIAN] - 1-2 days Time of Disposition: 20:14
[2017-07-12] MEDS ORDERED: PANTOPRAZOLE 40 MG/10 ML VIAL IVP STA (20:14)
[2017-07-12 20:56] LABS: Appearance,Urine Cloudy (Clear); Bacteria,Urine Rare /hpf; Bilirubin,Urine Negative (Negative); Blood,Urine Negative (Negative); Color,Urine Yellow; Glucose,Urine (UA) Negative (Negative); Ketones,Urine Trace (Negative); Leukocyte Esterase,Urine Negative (Negative); Mucus,Urine Rare /hpf; Nitrite,Urine Negative (Negative); PH, Urine 6.5 (5.0-8.0); Protein,Urine Negative (Negative); RBC,Urine 1 /hpf (0-5); Specific Gravity,Urine 1.014 (1.001-1.035); Squamous Epithelial Cell,Urine <1 /hpf (0-4); Urobilinogen,Urine <2.0 mg/dL (<2.0); WBC,Urine 2 /hpf (0-5)
[2017-07-12 21:14] VITALS: BP 120/79; PULSE 72; TEMP 97.9
== END 2017-07-12 21:12 | disposition home or self-care (01) ==
LOC: EC 15:21
DX: R10.11 Right upper quadrant pain (principal); R11.0 Nausea; Z79.899 Other long term (current) drug therapy
CPT/HCPCS: 36415; 80053; 82150; 83690; 85025; 81001; 81025; 76705; 99284; 96374; 96375 ×2; 96361 ×2; J2405; J1170; C9113

== ENCOUNTER → 2017-07-13 | Outpatient (CLI) | payer BC ==
--- NOTE | 2017-07-13 16:29 | MR ---
EXAMINATION TYPE: MR liver wo/w con DATE OF EXAM: 07/13/2017 COMPARISON: Gallbladder ultrasound from yesterday. CT abdomen and pelvis from July 02, 2017. HISTORY: Severe right upper quadrant and flank pain. Abnormal ultrasound. CONTRAST: Standard multiplanar, multisequence MRI departmental protocol of abdomen focusing on the liver utiliz ing 7.5 mL intravenous Gadavistcontrast. FINDINGS: Liver: Liver overall remains normal in size. There is no suspicious intrahepatic or extra hepatic jose eduardo floyd dilatation. Gallbladder is seen without intraluminal gallstones. No significant signal dropout is identified in the liver. Corresponding to ultrasound in the posterior segment right hepatic lobe the re is 1.1 cm T1 hypointense lesion that shows peripheral nodular enhancement with progressive centrip etal filling on postcontrast images seen best image 73 series 701 consistent with small benign julian ioma. Some respiratory motion artifact degradation makes visualization of this lesion difficult on T2 -weighted images but is identified image 27 series 601 as hyperintense. No additional worrisome great er than 1 cm solid or cystic intrahepatic mass is clearly seen on MRI. Other: Lung bases are grossly clear. The spleen, pancreas, and both adrenal glands are normal in size . There is no concerning renal mass or hydronephrosis seen bilaterally. There is no suspicious bowel dilatation. There is no concerning abdominal fluid collection. Debris filled stomach from recent meal ingestion is identified. There is no greater than 1 cm abdominal adenopathy. IMPRESSION: A 1.1 cm small benign hemangioma right hepatic lobe is confirmed.
== END | disposition home or self-care (01) ==
LOC: RADMRIMAIN 15:10
PROVIDERS: ATTEND Family Medicine
DX: D18.03 Hemangioma of intra-abdominal structures (principal)
CPT/HCPCS: 74183; A9581

== ENCOUNTER → 2017-07-14 | Outpatient (CLI) | payer BC ==
--- NOTE | 2017-07-14 17:03 | NM ---
EXAMINATION TYPE: NM hepatobiliary w EF DATE OF EXAM: 07/14/2017 COMPARISON: NONE HISTORY: Right upper quadrant pain TECHNIQUE: After the intravenous administration of 5.42 mCi Tc 99m Mebrofenin hepatobiliary scintigra phy is performed. Immediate images post injection. FINDINGS: There is satisfactory initial accumulation of tracer by the liver. The gallbladder is visualized wit hin 6 minutes. The small bowel activity is noted within 14 minutes. At one hour 8 ounces of oral en sure plus is given to mimic CCK and gallbladder ejection fraction is calculated at 66 %, in the jazmin l range. Therefore there is no scintigraphic evidence of cystic or common bile duct obstruction to s uggest acute cholecystitis or gallbladder dyskinesia. IMPRESSION: Exam is within normal limits.
== END | disposition home or self-care (01) ==
LOC: RADNMMAIN 14:53
PROVIDERS: ATTEND Family Medicine
DX: R10.11 Right upper quadrant pain (principal)
CPT/HCPCS: 78226; A9537

== ENCOUNTER → 2022-12-03 | Outpatient (CLI) | payer OTHER ==
--- NOTE | 2022-12-03 10:23 | CT ---
EXAMINATION TYPE: CT sinus wo con DATE OF EXAM: 12/03/2022 COMPARISON: None HISTORY: Chronic sinusitis CT DLP: [address] of the paranasal sinuses was performed in the axial and coronal planes. Bone and soft tissue settings are submitted. The paranasal sinuses demonstrate normal aeration and development. Scattered mucosal thickening involving the various ethmoid air cells. There is obstruction of the left ostiomeatal unit while the right ostiomeatal unit is patent. The nasal septum is midline. No bony destructive changes are seen within the field of view. IMPRESSION: Mild chronic ethmoidal sinusitis. Obstruction left ostiomeatal unit.
== END | disposition home or self-care (01) ==
LOC: RADCTMAIN 09:34 → MERGE 09:45
PROVIDERS: ATTEND Otolaryngology
DX: J32.2 Chronic ethmoidal sinusitis (principal); J34.89 Other specified disorders of nose and nasal sinuses
CPT/HCPCS: 70486

== ENCOUNTER → 2023-02-25 | Outpatient (CLI) | payer OTHER ==
[2023-02-28 13:15] LABS: Avocado Class CLASS 0; Banana IgE Class CLASS 0; Hazelnut IgE <0.10 kU/L (<0.10); Hazelnut IgE Class CLASS 0; Kiwi IgE <0.10 kU/L (<0.10); Kiwi IgE Class CLASS 0
== END | disposition home or self-care (01) ==
LOC: LABWHC1 08:26
PROVIDERS: ATTEND Otolaryngology
DX: J30.89 Other allergic rhinitis (principal)
CPT/HCPCS: 36415; 86003

== ENCOUNTER → 2023-07-22 | Outpatient (CLI) | payer OTHER ==
--- NOTE | 2023-07-22 10:26 | MM ---
Reason for Exam: Clinical finding. Baseline mammogram. Patient History: Menarche at age 18. Patient has no children. Premenopausal. Last menstrual period: 07/04/2023 Prior Study Comparison: Patient's first Mammogram. Tissue Density: The breast tissue is heterogeneously dense. This may lower the sensitivity of mammography. Findings: Analyzed By CAD. Underlying 1.9 cm circumscribed mass at the patient's right upper outer quadrant probable site. Dense tissues are present throughout. Area of more focal density superior left MLO view does not persist on additional views. Further ultrasound evaluation is recommended. No suspicious microcalcifications or other discrete abnormality is seen. Overall Assessment: Incomplete: need additional imaging evaluation, BI-RAD 0 Management: Diagnostic Breast Ultrasound of the right breast. Electronically signed and approved by: Kaleigh Pate M.D. Radiologist
--- NOTE | 2023-07-22 11:28 | USB ---
Reason for Exam: Clinical finding. Patient History: Menarche at age 18. Patient has no children. Premenopausal. Technique: Method: Targeted. Findings: The upper outer quadrant of the right breast, the axilla of the right breast and the retroareolar of the right breast were scanned. Targeted ultrasound right breast 8:00 to 12:00 including the patient's 10:00 palpable site. Scanning of the subareolar region and axilla. At the 10:00 palpable site, 2 cm from the nipple, there is a lobulated, circumscribed, hypoechoic mass measuring 1.8 x 1.5 x 1.2 cm. Posterior through transmission is present. No other solid or cystic lesion.. Overall Assessment: Suspicious, BI-RAD 4 Management: Ultrasound Core Biopsy of the right breast. Possible fibroadenoma. Results were given to the patient verbally at the time of exam. Electronically signed and approved by: Kaleigh Pate M.D. Radiologist
== END | disposition home or self-care (01) ==
LOC: RADMAMWWP 09:40
PROVIDERS: ATTEND Obstetrics & Gynecology
DX: N63.11 Unspecified lump in the right breast, upper outer quadrant (principal); N63.15 Unspecified lump in the right breast, overlapping quadrants; R92.333 Mammographic heterogeneous density, bilateral breasts
CPT/HCPCS: 77062; 77066

== ENCOUNTER → 2024-11-22 | Outpatient (CLI) | payer OTHER | END | disposition home or self-care (01) | LOC: LABWHC1 08:29 | PROVIDERS: ATTEND Family Medicine | DX: Z32.01 Encounter for pregnancy test, result positive (principal) | CPT/HCPCS: 36415; 84702 ==

== ENCOUNTER 2024-12-20 18:45 | Emergency (ER) | payer OTHER ==
--- NOTE | 2024-12-20 19:04 | ED ---
Female Urogenital HPI - General Chief complaint: Vaginal Bleeding Stated complaint: vaginal bleeding 10 weeks Time Seen by Provider: 12/20/24 18:56 Source: patient Mode of arrival: ambulatory Limitations: no limitations - History of Present Illness Initial comments: 34-year-old female currently 9 weeks with twins presented with chief co mplaint of pelvic cramping and spotting. Patient reports that the cramping started last night and the spotting started today. She reports a very light amount of bleeding, she only notices it when she wipes. Pain is centralized, not worse on one side. She is having some urinary frequency. No dysuria or hematuria. She is having some lower back pain but she reports that she was just working and that is typical for when she is working. No fever. This is her first . - Related Data Home Medications Medication Instructions Recorded Confirmed Eletriptan [Relpax] 40 mg PO HS PRN 07/02/17 07/22/23 Allergies Allergy/AdvReac Type Severity Reaction Status Date / Time hydromorphone [From Dilaudid] AdvReac Itching Verified 12/20/24 18:51 metoclopramide [From Reglan] AdvReac Hallucinati Verified 12/20/24 18:51 ons Review of Systems ROS Statement: Those systems with pertinent positive or pertinent negative responses have been documented in the HPI. ROS Other: All systems not noted in ROS Statement are negative. Past Medical History Additional Past Medical History / Comment(s): migraines, viral mennigitis age 10, ulcerative colitis History of Any Multi-Drug Resistant Organisms: None Reported Past Surgical History: Orthopedic Surgery Additional Past Surgical History / Comment(s): Right ACL repair Past Psychological History: No Psychological Hx Reported Smoking Status: Never smoker Past Alcohol Use History: Occasional Past Drug Use History: None Reported General Exam Limitations: no limitations General appearance: alert, in no apparent distress Head exam: Present: atraumatic, normocephalic, normal inspection Eye exam: Present: normal appearance, EOMI Neck exam: Present: normal inspection. Absent: meningismus Respiratory exam: Absent: respiratory distress, stridor GI/Abdominal exam: Present: soft, tenderness (discomfort R side abdomen). Absent: distended, guarding, rebound, rigid Neurological exam: Present: alert, oriented X3 Psychiatric exam: Present: normal affect, normal mood Skin exam: Present: warm, dry, normal color Course Vital Signs 12/20/24 12/20/24 18:48 20:58 Temperature 98.2 F 98.8 F Pulse Rate 102 H 77 Respiratory 16 18 Rate Blood Pressure 145/97 126/78 O2 Sat by Pulse 99 98 Oximetry Medical Decision Making - Medical Decision Making Was pt. sent in by a medical professional or institution (SARAHI Shipman, SENIOR ENTERPRISE ARCHITECT, urgent care, hospital, or senior living...) When possible be specific @ -No Did you speak to anyone other than the patient for history (EMS, parent, family, police, friend...)? What history was obtained from this source @ -No Did you review nursing and triage notes (agree or disagree)? Why? @ -I reviewed and agree with nursing and triage notes Were old charts reviewed (outside hosp., previous admission, EMS record, old EKG, old radiological studies, urgent care reports/EKG's, senior living records)? Report findings @ -No old charts were reviewed Differential Diagnosis (chest pain, altered mental status, abdominal pain women, abdominal pain men, vaginal bleeding, weakness, fever, dyspnea, syncope, headache, dizziness, GI bleed, back pain, seizure, CVA, palpatations, mental health, musculoskeletal)? @ -MDM Differential Vaginal Bleeding: Spontaneous , threatened , molar , ectopic , bloody show, incompetent cervix, abruptioplacenta, placenta previa, uterine rupture, dysfunctional uterine bleeding, hemorrhage, uterine fibroids. ... This is not meant to be an all-inclusive list EKG interpreted by me (3pts min.). @ -As above X-rays interpreted by me (1pt min.). @ -None done CT interpreted by me (1pt min.). @ -None done U/S interpreted by me (1pt. min.). @ -Ultrasound shows live twin intrauterine gestation identified with estimated gestational age of 8 weeks 5 days. Estimated due date 07/27/2025. Appearance suggests dichorionic diamniotic twin What testing was considered but not performed or refused? (CT, X-rays, U/S, labs)? Why? @ -None What meds were considered but not given or refused? Why? @ -None Did you discuss the management of the patient with other professionals (professionals i.e. SARAHI Shipman, SENIOR ENTERPRISE ARCHITECT, lab, RT, psych nurse, director of social services, associate professor of anthropology, teacher, financial officer, manager of case)? Give summary @ -No Was smoking cessation discussed for >3mins.? @ -No Was critical care preformed (if so, how long)? @ -No Were there social determinants of health that impacted care today? How? (Homelessness, low income, unemployed, alcoholism, drug addiction, transportation, low edu. Level, literacy, decrease access to med. care, assisted, rehab)? @ -No Was there de-escalation of care discussed even if they declined (Discuss DNR or withdrawal of care, Hospice)? DNR status @ -No What co-morbidities impacted this encounter? (DM, HTN, Smoking, COPD, CAD, Cancer, CVA, ARF, Chemo, Hep., AIDS, mental health diagnosis, sleep apnea, morbid obesity)? @ -None Was patient admitted / discharged? Hospital course, mention meds given and route, prescriptions, significant lab abnormalities, going to OR and other per tinent info. @ -34-year-old female currently about 9 to 10 weeks with twins presenting with chief complaint of cramping and spotting. History and physical examination are conducted. Hemoglobin stable at 12.4. hCG [id number]. She has blood type A+ does not require RhoGAM. Urine shows no evidence of infection. There is small blood which is to be expected given that the patient is spotting. Ultrasound shows twin live intrauterine gestation. Patient is educated on today's findings. Provided with an order for repeat beta-hCG in 48 hours. She will follow-up with her PAINTINGS CONSERVATOR doctor [place]. Follow-up with PCP. Report back to ER with any new or worsening symptoms. Discussed return parameters and answered all questions. Patient conveyed verbal understanding and agreed to the plan. I discussed this case in detail with my attending Dr. Schwartz Undiagnosed new problem with uncertain prognosis? @ -No Drug Therapy requiring intensive monitoring for toxicity (Heparin, Nitro, Ins ulin, Cardizem)? @ -No Were any procedures done? @ -No Diagnosis/symptom? @ -Threatened Acute, or Chronic, or Acute on Chronic? @ -Acute Uncomplicated (without systemic symptoms) or Complicated (systemic symptoms)? @ -Uncomplicated Side effects of treatment? @ -No Exacerbation, Progression, or Severe Exacerbation? @ -No Poses a threat to life or bodily function? How? (Chest pain, USA, AL, pneumonia, PE, COPD, DKA, ARF, appy, cholecystitis, CVA, Diverticulitis, Homicidal, Suicidal, threat to staff... and all critical care pts) @ -Unlikely - Lab Data Result diagrams: 12/20/24 19:15 12/20/24 19:15 Lab Results 12/20/24 12/20/24 12/20/24 Range/Units 19:15 19:15 19:15 WBC 11.30 H (4.50-10.00) 10*3/uL RBC 4.13 (4.10-5.20) 10*6/uL Hgb 12.4 (12.0-15.0) g/dL Hct 35.7 L (37.2-46.3) % MCV 86.4 D (80.0-97.0) fL MCH 30.0 (27.0-32.0) pg MCHC 34.7 (32.0-37.0) g/dL Plt Count 277 (140-440) 10*3/uL MPV 9.5 (9.5-12.2) fL Immature Gran % (Auto) 0.4 % Neutrophils % 64.9 % Lymphocytes % 26.3 % Monocytes % 5.4 % Eosinophils % 2.4 % Basophils % 0.6 % Immature Gran # 0.04 (0.00-0.04) 10*3/uL Neutrophils # 7.34 (1.80-7.70) 10*3/uL Lymphocytes # 2.97 (0.90-5.00) 10*3/uL Monocytes # 0.61 (0.20-1.00) 10*3/uL Eosinophils # 0.27 (0.04-0.35) 10*3/uL Basophils # 0.07 (0.00-0.10) 10*3/uL Sodium 135 L (137-145) mmol/L Potassium 4.3 (3.5-5.1) mmol/L Chloride 101 (98-107) mmol/L Carbon Dioxide 23 (22-30) mmol/L Anion Gap 11 mmol/L BUN 10 (7-17) mg/dL Creatinine 0.47 L (0.52-1.04) mg/dL Est GFR (CKD-EPI)AfAm >90 (>60 ml/min/1.73 sqM) Est GFR (CKD-EPI)NonAf >90 (>60 ml/min/1.73 sqM) Glucose 90 (74-99) mg/dL Calcium 9.6 (8.4-10.2) mg/dL Total Bilirubin 0.5 (0.2-1.3) mg/dL AST 40 H (14-36) U/L ALT 16 (4-34) U/L Alkaline Phosphatase 48 (38-126) U/L Total Protein 7.7 (6.3-8.2) g/dL Albumin 4.5 (3.5-5.0) g/dL HCG, Quant 034960.0 mIU/mL Urine Color Colorless Urine Appearance Clear (Clear) Urine pH 6.0 (5.0-8.0) Ur Specific Edison 1.009 (1.001-1.035) Urine Protein Negative (Negative) Urine Glucose (UA) Negative (Negative) Urine Ketones Negative (Negative) Urine Blood Small H (Negative) Urine Nitrite Negative (Negative) Urine Bilirubin Negative (Negative) Urine Urobilinogen <2.0 (<2.0) mg/dL Ur Leukocyte Esterase Negative (Negative) Urine RBC 1 (0-5) /hpf Urine WBC 1 (0-5) /hpf Urine Bacteria Few H (None) /hpf Urine Mucus Rare H (None) /hpf Blood Type Blood Type Recheck Bld Type Recheck Status 12/20/24 Range/Units 19:20 WBC (4.50-10.00) 10*3/uL RBC (4.10-5.20) 10*6/uL Hgb (12.0-15.0) g/dL Hct (37.2-46.3) % MCV (80.0-97.0) fL MCH (27.0-32.0) pg MCHC (32.0-37.0) g/dL Plt Count (140-440) 10*3/uL MPV (9.5-12.2) fL Immature Gran % (Auto) % Neutrophils % % Lymphocytes % % Monocytes % % Eosinophils % % Basophils % % Immature Gran # (0.00-0.04) 10*3/uL Neutrophils # (1.80-7.70) 10*3/uL Lymphocytes # (0.90-5.00) 10*3/uL Monocytes # (0.20-1.00) 10*3/uL Eosinophils # (0.04-0.35) 10*3/uL Basophils # (0.00-0.10) 10*3/uL Sodium (137-145) mmol/L Potassium (3.5-5.1) mmol/L Chloride (98-107) mmol/L Carbon Dioxide (22-30) mmol/L Anion Gap mmol/L BUN (7-17) mg/dL Creatinine (0.52-1.04) mg/dL Est GFR (CKD-EPI)AfAm (>60 ml/min/1.73 sqM) Est GFR (CKD-EPI)NonAf (>60 ml/min/1.73 sqM) Glucose (74-99) mg/dL Calcium (8.4-10.2) mg/dL Total Bilirubin (0.2-1.3) mg/dL AST (14-36) U/L ALT (4-34) U/L Alkaline Phosphatase (38-126) U/L Total Protein (6.3-8.2) g/dL Albumin (3.5-5.0) g/dL HCG, Quant mIU/mL Urine Color Urine Appearance (Clear) Urine pH (5.0-8.0) Ur Specific Edison (1.001-1.035) Urine Protein (Negative) Urine Glucose (UA) (Negative) Urine Ketones (Negative) Urine Blood (Negative) Urine Nitrite (Negative) Urine Bilirubin (Negative) Urine Urobilinogen (<2.0) mg/dL Ur Leukocyte Esterase (Negative) Urine RBC (0-5) /hpf Urine WBC (0-5) /hpf Urine Bacteria (None) /hpf Urine Mucus (None) /hpf Blood Type A Positive Blood Type Recheck No Previous Record Bld Type Recheck Status [facility] ONLY Disposition Clinical Impression: Threatened Disposition: HOME SELF-CARE Condition: Good Instructions (If sedation given, give patient instructions): Threatened Mi scarriage (ED) Additional Instructions: Follow-up with your PAINTINGS CONSERVATOR. Report back to ER with any new or worsening symptoms. Take Tylenol as needed for pain. Comply with pelvic rest, avoid intercourse or inserting anything else into the vagina and avoid rigorous physical activity/heavy lifting. Obtain repeat beta-hCG in 48 hours Is patient prescribed a controlled substance at d/c from ED?: No Referrals: Lisha Deras MD [REFERRING] - 1-2 days Heather Ventura MD [Primary Care Provider] - 1-2 days Time of Disposition: 20:46
[2024-12-20 19:33] LABS: Basophils # (A) 0.07 10*3/uL (0.00-0.10); Basophils % (A) 0.6 %; Eosinophils # (A) 0.27 10*3/uL (0.04-0.35); Eosinophils % (A) 2.4 %; HCT 35.7 % (37.2-46.3); HGB 12.4 g/dL (12.0-15.0); Lymphocytes # (A) 2.97 10*3/uL (0.90-5.00); Lymphocytes % (A) 26.3 %; MCHC 34.7 g/dL (32.0-37.0); Mean Platelet Volume 9.5 fL (9.5-12.2); Monocytes # (A) 0.61 10*3/uL (0.20-1.00); Monocytes % (A) 5.4 %; Neutrophils # (A) 7.34 10*3/uL (1.80-7.70); Neutrophils % (A) 64.9 %; Platelet Count 277 10*3/uL (140-440); RBC 4.13 10*6/uL (4.10-5.20); RDW 12.2 % (11.5-14.5)
[2024-12-20] MEDS: SODIUM CHLORIDE 0.9% 1,000 ML IV ONE (19:38)
[2024-12-20 19:42] LABS: Appearance,Urine Clear (Clear); Bacteria,Urine Few /hpf; Bilirubin,Urine Negative (Negative); Blood,Urine Small (Negative); Color,Urine Colorless; Glucose,Urine (UA) Negative (Negative); Ketones,Urine Negative (Negative); Leukocyte Esterase,Urine Negative (Negative); Mucus,Urine Rare /hpf; Nitrite,Urine Negative (Negative); Protein,Urine Negative (Negative); RBC,Urine 1 /hpf (0-5); Specific Gravity,Urine 1.009 (1.001-1.035); Urobilinogen,Urine <2.0 mg/dL (<2.0); WBC,Urine 1 /hpf (0-5)
[2024-12-20 19:54] LABS: ALT 16 U/L (4-34); African American GFR (CKD) >90 (>60 ml/min/1.73 sqM); Anion Gap 11 mmol/L; Blood Urea Nitrogen 10 mg/dL (7-17); Calcium 9.6 mg/dL (8.4-10.2); Carbon Dioxide 23 mmol/L (22-30); Chloride 101 mmol/L (98-107); Glucose 90 mg/dL (74-99); Non-African American GFR(CKD) >90 (>60 ml/min/1.73 sqM); Sodium 135 mmol/L (137-145); Total Bilirubin 0.5 mg/dL (0.2-1.3)
[2024-12-20 20:06] LABS: MCV 86.4 fL (80.0-97.0)
[2024-12-20 20:09] LABS: AST 40 U/L (14-36); Albumin 4.5 g/dL (3.5-5.0); Alkaline Phosphatase 48 U/L (38-126); Potassium 4.3 mmol/L (3.5-5.1); Total Protein 7.7 g/dL (6.3-8.2)
--- NOTE | 2024-12-20 20:20 | US ---
EXAMINATION TYPE: US OB <= 14 wk twins DATE OF EXAM: 12/20/2024 COMPARISON: NONE CLINICAL INDICATION: Female, 34 years old with history of pain, spotting; patient states cramping and spotting. states they have not set a due date yet. di di twins TECHNIQUE: Transabdominal (TA) with grayscale imaging of gestation's. FINDINGS: EXAM MEASUREMENTS: GESTATIONAL AGE / DATING Physician Established: Not yet established Dates by LMP: (9 weeks/2 days) EDC: 07/23/2025 Dates by First Scan: No previous this is first scan Dates by Current Scan for Baby A: (8 weeks/5 days) EDC: 07/27/2025 Dates by Current Scan for Baby B: (8 weeks/5 days) EDC: 07/27/2025 MATERNAL ANATOMY Uterus: 9.0 x 6.4 x 7.1cm. retroverted Right Ovary: obscured by gas Left Ovary: obscured by gas Post CDS / Adnexa: wnl Presence of free fluid: not seen Presence of corpus luteal cyst: not seen Presence of subchorionic bleed: not seen Presence of two separate gestational sacs: yes with thick membrane GESTATION / SURVEY TWIN A CRL: 2.0cm (8 weeks/5 days) GS morphology: Normal Yolk Sac (normal less than 6mm): 2mm Heart Rate: 170 bpm Rhythm: Normal IUP: Viable IUP TWIN B CRL: 2.01cm (8 weeks/5 days) GS morphology: Normal Yolk Sac (normal less than 6mm): 2mm Heart Rate: 167 bpm Rhythm: Normal IUP: Viable IUP Date of LMP: 10/16/2024 Beta HcG (if available): Not available at this time IMPRESSION: Live twin intrauterine gestation identified with estimated gestational age of 8 weeks 5 days. Estimat ed due date of 07/27/2025. Appearance suggests dichorionic diamniotic twin . [facility], , 12/20/2024 8:18 PM
[2024-12-20 20:59] VITALS: BP 126/78; PULSE 77; RESP 18; TEMP 98.8
== END 2024-12-20 20:59 | disposition home or self-care (01) ==
LOC: EC 18:45
DX: O20.0 Threatened abortion (principal); Z88.5 Allergy status to narcotic agent; Z88.8 Allergy status to other drugs, medicaments and biological substances; Z3A.09 9 weeks gestation of pregnancy
CPT/HCPCS: 36415; 76801; 76802; 80053; 81001; 84702; 85025; 86900; 86901; 96360; 99284